=== PATIENT | male | born 1960 | race Caucasian/White ===

== ENCOUNTER 2020-09-07 06:12 | Emergency (ER) | payer MEDICARE ==
[~2020-09-07] VITALS: Ht 182.9 cm; Wt 121.4 kg
[~2020-09-07 06:12] MED LIST: ASPI-611 PO; ATOR10TA87 PO; LISI20TA28 PO; METH-797 PO; OMEP40CA21 PO
[2020-09-07 08:07] LABS: BASOPHILS # (AUTO) 0.1 X10'3 (0-0.2); BASOPHILS % (AUTO) 0.5 % (0-1); EOSINOPHILS # (AUTO) 0.5 X10'3 (0-0.9); EOSINOPHILS % (AUTO) 4.4 % (0-6); HEMATOCRIT 37.1 % (42.0-52.0); HEMOGLOBIN 12.4 g/dl (14.0-17.9); LYMPHOCYTES # (AUTO) 1.7 X10'3 (1.1-4.8); LYMPHOCYTES % (AUTO) 14.4 % (21-51); MEAN CORPUSCULAR HEMOGLOBIN 30.6 PG (27.0-31.0); MEAN CORPUSCULAR HGB CONC 33.4 g/dL (33.0-36.5); MEAN CORPUSCULAR VOLUME 91.6 FL (78-98); MEAN PLATELET VOLUME 8.7 FL (7.4-10.4); MONOCYTES # (AUTO) 0.8 X10'3 (0-0.9); MONOCYTES % (AUTO) 6.9 % (2-12); NEUTROPHILS # (AUTO) 8.5 X10'3 (1.8-7.7); NEUTROPHILS % (AUTO) 73.8 % (42-75); PLATELET COUNT 316 X10'3 (140-440); RED BLOOD COUNT 4.05 X10'6 (4.70-6.10); RED CELL DISTRIBUTION WIDTH 14.2 % (11.5-14.5); WHITE BLOOD COUNT 11.5 X10'3 (4.5-11.0)
[2020-09-07] MEDS ORDERED: HYDROcodone/acetaminophen 5mg/325mg tablet PO ONE (08:55)
[2020-09-07 09:11] LABS: ALANINE AMINOTRANSFERASE 17 U/L (12-78); ALBUMIN 3.6 G/DL (3.4-5.0); ALBUMIN/GLOBULIN RATIO 0.9 (1.1-1.5); ANION GAP 11 (8-16); ASPARTATE AMINO TRANSFERASE 11 U/L (10-37); BILIRUBIN,TOTAL 0.4 MG/DL (0.1-1.0); BLOOD UREA NITROGEN 16 MG/DL (7-18); BUN/CREATININE RATIO 14.7 (5.4-32.0); CALCIUM 8.5 MG/DL (8.5-10.1); CHLORIDE 106 MMOL/L (99-107); CREATININE 1.09 MG/DL (0.60-1.10); GLUCOSE 110 MG/DL (70-104); POTASSIUM 3.8 MMOL/L (3.5-5.1); SODIUM 143 MMOL/L (135-145); TOTAL CARBON DIOXIDE 25.7 MMOL/L (24-32); TOTAL PROTEIN 7.4 G/DL (6.4-8.2); eGFR 69 ML/MIN
[2020-09-07 09:30] VITALS: BP 164/99
[2020-09-07] MEDS ORDERED: INDO-12 PO (09:35)
[2020-09-07] MEDS ORDERED: PRED10TA23 PO (09:35)
[2020-09-07] MEDS ORDERED: HYDR-3965 PO (09:35)
[2020-09-07 09:45] LABS: ALKALINE PHOSPHATASE 79 IU/L (46-116)
== END 2020-09-07 10:09 | disposition home or self-care (01) ==
LOC: ER 06:13
DX: M10.9 Gout, unspecified (principal); E78.00 Pure hypercholesterolemia, unspecified; I10 Essential (primary) hypertension; K21.9 Gastro-esophageal reflux disease without esophagitis; G89.29 Other chronic pain; Z79.82 Long term (current) use of aspirin; Z79.899 Other long term (current) drug therapy
CPT/HCPCS: 36415; 71045; 73610; 80053; 85025; 99284

== ENCOUNTER 2021-01-10 16:39 | Emergency (ER) | payer MEDICARE ==
[~2021-01-10] VITALS: Ht 182.9 cm; Wt 120.5 kg
[~2021-01-10 16:39] MED LIST changes: +INDO-12 PO
[2021-01-10 16:54] VITALS: BP 157/114
[2021-01-10] MEDS ORDERED: HYDR-3965 PO (16:59)
[2021-01-10] MEDS ORDERED: HYDROcodone/acetaminophen 10/325mg tab PO ONE (17:00)
[2021-01-10] MEDS ORDERED: ketorolac trometh. 30mg/ml inj. IM ONE (17:00)
== END 2021-01-10 17:25 | disposition home or self-care (01) ==
LOC: ER 16:40
DX: M48.061 Spinal stenosis, lumbar region without neurogenic claudication (principal); G89.29 Other chronic pain; E78.00 Pure hypercholesterolemia, unspecified; I10 Essential (primary) hypertension; K21.9 Gastro-esophageal reflux disease without esophagitis; M10.9 Gout, unspecified; M81.0 Age-related osteoporosis without current pathological fracture; G62.9 Polyneuropathy, unspecified; Z79.82 Long term (current) use of aspirin; Z79.899 Other long term (current) drug therapy
CPT/HCPCS: 96372; 99283; J1885